=== PATIENT | female | born 1970 | race Caucasian/White ===

== ENCOUNTER 2019-11-06 10:34 | Emergency (ER) | payer OTHER ==
[~2019-11-06] VITALS: Ht 188 cm; Wt 86.4 kg
[2019-11-06] MEDS ORDERED: TETanus/Pertussis (Acell)/Diphther VAC/PF (Tdap-Adult) 0.5ml syringe IMVAC ONE (11:40)
[2019-11-06] MEDS ORDERED: LIDOcaine 1% W/epiNEPHrine 1:200,000 10ml vial IJ ONE (11:40)
[2019-11-06] MEDS ORDERED: ibuprofen 200mg tablet PO ONE (11:40)
[2019-11-06 13:04] VITALS: BP 120/85
== END 2019-11-06 13:29 | disposition home or self-care (01) ==
LOC: ER 10:34
DX: S61.012A Laceration without foreign body of left thumb without damage to nail, initial encounter (principal); Z88.5 Allergy status to narcotic agent; X58.XXXA Exposure to other specified factors, initial encounter; Y93.89 Activity, other specified; Y92.89 Other specified places as the place of occurrence of the external cause; Y99.8 Other external cause status
CPT/HCPCS: 12002; 90471; 90715; 99283